=== PATIENT | female | born 1980 | race African-American/Black ===

== ENCOUNTER 2016-09-16 17:38 | Emergency (ER) | payer OTHER ==
[~2016-09-16] VITALS: Ht 157.5 cm; Wt 58.1 kg
[2016-09-16 17:43] VITALS: BP 112/74
--- NOTE | 2016-09-16 18:17 | ED GI/GU/ABDOMINAL COMPLAINT ---
History of Present Illness General Chief Complaint: Low Back Pain/Injury Stated Complaint: LOW BACK/HIP PAIN, 12 WEEKS PREG Source: patient Exam Limitations: no limitations Vital Signs & Intake/Output Vital Signs & Intake/Output Vital Signs Date Time Temp Pulse Resp B/P Pulse O2 O2 Flow FiO2 Ox Delivery Rate 09/16 1842 98 09/16 1743 97.5 87 18 112/74 100 Room Air Allergies Coded Allergies: No Known Allergies (09/16/16) Reconcile Medications Acetaminophen 500 MG TABLET 1 TAB PO PRN PAIN (Reported) Diphenhydramine HCl (Benadryl) 25 MG CAPSULE 1 CAP PO PRN SLEEP (Reported) Vit Comb.10/Iron/FA (Vitafol-Ob Caplet) 65 MG-1 MG TABLET 1 TAB PO DAILY (Reported) Triage Note: PT TO ED FOR R SIDED LOW BACK PAIN THAT BEGAN YESTERDAY MORNING. REPORTING SHE IS 12 WEEKS , HAD A NORMAL US YESTERDAY. R SIDED BACK PAIN RADIATES TO RLQ ABD. DENIES ANY CRAMPING, ABNORMAL VAG DISCHARGE, BLEEDING OR SPOTTING. Triage Nurses Notes Reviewed? yes ? y Is pt currently ? No Onset: Abrupt Timing: recent history Quality/Severity: cramping, mild, moderate, sharpness Location: low back/bilateral hip No Modifying Factors: none HPI: 36-year-old female comes into emergency room for evaluation of low back pain and bilateral hip pain has been going on for the past day. Patient reports that she is currently about 12 weeks . 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 She denies any vaginal bleeding or leakage of fluid. Denies any fever or chills or urinary symptoms for reports that her urine looked mildly cloudy. Denies any other associated symptoms. Past History Travel History Traveled to [place] past 21 day No Medical History Any Pertinent Medical History? 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 No Review of Systems Review of Systems Constitutional: Reports: no symptoms. EENTM: Reports: no symptoms. Respiratory: Reports: no symptoms. Cardiovascular: Reports: no symptoms. GI: Reports: see HPI. Genitourinary: Reports: see HPI. Musculoskeletal: Reports: see HPI. Skin: Reports: no symptoms. Neurological/Psychological: Reports: no symptoms. Hematologic/Endocrine: Reports: no symptoms. Immunologic/Allergic: Reports: no symptoms. All Other Systems: Reviewed and Negative Physical Exam Physical Exam General Appearance: well developed/nourished, no apparent distress, alert Head: atraumatic, normal appearance Eyes: Bilateral: normal appearance. Ears, Nose, Throat, Mouth: hearing grossly normal, moist mucous membrane Neck: normal inspection, full range of motion Respiratory: normal breath sounds, no respiratory distress Cardiovascular: regular rate/rhythm Gastrointestinal: soft, non-tender Back: normal inspection, normal range of motion, NO PARASPINAL TENDERNESS Extremities: normal range of motion Neurologic/Psych: awake, alert, oriented x 3, normal gait Skin: intact, normal color Core Measures ACS in differential dx? No Severe Sepsis Present: No Septic Shock Present: No Progress Differential Diagnosis: appendicitis, biliary colic, kidney stone, ovarian cyst, ovarian torsion, PID/cervicitis, perforated viscous, threatened AB, UTI/pyelo Plan of Care: Orders Procedure Date/time Status URINALYSIS 09/17 1815 Complete HUMAN BETA HCG TITRE 09/17 1815 Complete COMPREHENSIVE METABOLIC PANEL 09/17 1815 Complete CBC WITHOUT DIFFERENTIAL 09/17 1815 Complete Laboratory Tests 09/16/16 1840: Urinalysis MANY H, Urine Color YEL, Urine Clarity HAZY H, Urine pH 6.5, Ur Specific Berry 1.025, Urine Protein NEG, Urine Ketones NEG, Urine Nitrite NEG, Urine Bilirubin NEG, Urine Urobilinogen 0.2, Ur Leukocyte Esterase NEG, Ur Microscopic SEDIMENT EXAMINED, Urine WBC 3-5 H, Ur Epithelial Cells MANY H, Urine Bacteria MANY H, Micro UA Comment BUDDING YEAST H, Urine Hemoglobin NEG, Urine Glucose NEG 09/16/16 183: Anion Gap 9, Estimated GFR > 60, BUN/Creatinine Ratio 10.0, Glucose 78, Calcium 8.9, Total Bilirubin 0.3, AST 23, ALT 28, Alkaline Phosphatase 47, Total Protein 6.9, Albumin 3.6, Globulin 3.3, Albumin/Globulin Ratio 1.1, Beta HCG, Quant 940947.0, CBC w Diff NO MAN DIFF REQ, RBC 3.81 L, MCV 87.4, MCH 29.5, RDW 12.5, MPV 7.5, Gran % 78.5 H, Lymphocytes % 13.3 L, Monocytes % 7.2, Eosinophils % 0.7, Basophils % 0.3, Absolute Granulocytes 10.0 H, Absolute Lymphocytes 1.7, Absolute Monocytes 0.9 H, Absolute Eosinophils 0.1, Absolute Basophils 0, PUBS MCHC 33.7 Initial ED EKG: none Departure Departure Disposition: HOME OR SELF CARE Condition: Stable Clinical Impression Primary Impression: Back pain Referrals: PATIENT HAS NO PRIMARY CARE DR (PCP/Family) Additional Instructions: Follow-up with your [employer]OUBLE [employer] doctor on Sunday. Return to the emergency room if any concerns worsening symptoms. Please go over all results of today's visit with your primary care doctor. Contact your primary care doctor to let them know you were here in the emergency room. There may be nonspecific findings which may not be related to your visit today here in the emergency room but may require further evaluation and chronic monitoring by your primary care doctor. If you had a laceration today the chance of foreign body always remains. You should follow-up with your primary care doctor for recheck in 3-5 days for a wound check. If you had an x-ray done there is a chance that a fracture could have been missed on initial read and you should follow-up with your primary care doctor for repeat x-rays if symptoms persist. If your blood pressure was elevated here in the emergency room please have rechecked by her primary care doctor within the next 48 hours by your primary care doctor. If you were prescribed a narcotic here in the emergency room or any type of controlled substances you're not allowed to drive while taking this medication or operate any type of heavy machinery. Narcotics can make you feel lightheaded dizziness nausea and can cause constipation. You may need to pickle maker a stool softener. Thank you for choosing [facility] emergency room. Please return to the emergency room immediately if you have any other concerns worsening of symptoms. Departure Forms: Customer Survey General Discharge Information Comments 09/16/2016 8:58:10 PM Patient clinically looks well. Patient is nontoxic-appearing. Patient is in no apparent distress. No abdominal pain. Patient seen by Dr. Chu. Patient will follow up with her [employer] doctor on Sunday. Return if any other concerns. No vaginal bleeding or leakage of fluid.
[2016-09-16] MEDS ORDERED: VITAFOL-OB CAP1 EACH PO (18:23)
[2016-09-16] MEDS ORDERED: BENADRYL25 MG PO (18:28)
[2016-09-16] MEDS ORDERED: ACETAMINOPHEN500 M4 PO (18:28)
[2016-09-16 18:45] LABS: ABSOLUTE BASOPHIL COUNT 0 /CUMM (0.0-0.2); ABSOLUTE EOSINOPHIL COUNT 0.1 /CUMM (0.0-0.7); ABSOLUTE LYMPH COUNT 1.7 /CUMM (1.2-3.4); ABSOLUTE MONOCYTE COUNT 0.9 /CUMM (0.10-0.60); BASOPHIL % 0.3 % (0.0-2.0); EOSINOPHIL % 0.7 % (0-5); GRANULOCYTE % 78.5 % (42.2-75.2); HEMATOCRIT 33.3 % (37-47); MEAN CORPUSCULAR HGB 29.5 PG (27.0-31.0); MEAN CORPUSCULAR HGB CONC 33.7 G/DL (33.0-37.0); MEAN CORPUSCULAR VOLUME 87.4 FL (81.0-99.0); MEAN PLATELET VOLUME 7.5 FL (7.4-10.4); PLATELET COUNT 279 /CUMM (130-400); RBC DISTRIBUTION WIDTH 12.5 % (11.5-14.5); RED BLOOD CELL CT 3.81 /CUMM (4.20-5.40); WHITE BLOOD CELL COUNT 12.8 /CUMM (4.8-10.8)
== END 2016-09-16 20:10 ==
LOC: ERH 17:38
PROVIDERS: Physician Assistant Medical
DX: O26.91 Pregnancy related conditions, unspecified, first trimester (principal); M54.5 Low back pain; Z3A.12 12 weeks gestation of pregnancy
CPT/HCPCS: 81001